=== PATIENT | male | born 1990 | race Caucasian/White ===

== ENCOUNTER 2020-05-13 11:36 | Emergency (ER) | payer BC, SELFPAY ==
--- NOTE | 2020-05-13 11:46 | ED.GENADULT ---
HPI - General Adult General Chief complaint: Upper Respiratory Infection Stated complaint: Sore throat Time Seen by Provider: 05/13/20 11:50 Source: patient Mode of arrival: ambulatory Limitations: no limitations History of Present Illness HPI narrative: 29-year-old male patient [facility] with complaints of sore throat for the past 2 days. Denies any fevers, ear pain, runny nose, coughing, chest pain or shortness of breath. Denies any abdominal pain, nausea, vomiting or diarrhea. Patient states he is tried [id number] Advil, ibuprofen for his pain. Patient states he has had strep throat before in the past. Related Data Home Medications Medication Instructions Recorded Confirmed Fish Oil 05/13/20 Wellbutrin SR 05/13/20 Allergies Allergy/AdvReac Type Severity Reaction Status Date / Time amoxicillin Allergy Rash Verified 05/13/20 12:05 Review of Systems Review of Systems: Narrative: CONSTITUTIONAL: Denies fever, chills, or sweats. EYES: Denies visual changes, redness, or discharge. ENT: Denies rhinorrhea, congestion, positive sore throat, denies otalgia. CARDIOVASCULAR: Denies chest pain, palpitations, or edema. RESPIRATORY: Denies cough or dyspnea. GASTROINTESTINAL: Denies abdominal pain, nausea, vomiting, or diarrhea. GENITOURINARY: Denies dysuria or hematuria. SKIN: Denies rash or itching. MUSCULOSKELETAL: Denies back pain, joint pain, or myalgia. NEUROLOGIC: Denies headache, numbness, or weakness. PSYCHIATRIC: Denies anxiety or depression. PMFSH Comments At the time of my signature I agree with nursing past medical history, surgical, social, and family history. There is no relevant family history pertinent to the presenting complaint. Exam Narrative: Exam Narrative: GENERAL: Well-appearing, well-nourished, and in no acute distress. HEAD: Normocephalic, atraumatic. EYES: PERRLA and EOMI. ENT: Nares clear, no rhinorrhea or epistaxis. Mucous membranes moist. Posterior pharynx with 2+ tonsil enlargement and erythema. No exudates or lesions present. Bilateral TMs unable to be assessed due to cerumen impaction. NECK: Supple. No lymphadenopathy CHEST: Clear to auscultation. No respiratory distress. HEART: Regular rate and rhythm. No murmur heard. Normal peripheral pulses. ABDOMEN: Soft, nontender, nondistended, normal active bowel sounds. EXTREMITIES: Normal range of motion. No edema. SKIN: Warm, dry, no rash. NEURO: No focal deficits. Alert and oriented x3. Course Vital Signs Vital signs: Vital Signs Temperature 36.8 C 05/13/20 11:50 Pulse Rate 75 05/13/20 11:50 Respiratory Rate 16 05/13/20 11:50 Blood Pressure 127/65 05/13/20 11:50 Pulse Oximetry 98 05/13/20 11:50 Temperature 36.8 C 05/13/20 11:50 Pulse Rate 75 05/13/20 11:50 Respiratory Rate 16 05/13/20 11:50 Blood Pressure 127/65 05/13/20 11:50 Pulse Oximetry 98 05/13/20 11:50 Vital signs reviewed. Medical Decision Making Differential Diagnosis Differential Diagnosis: Differential diagnosis: Viral pharyngitis, pharyngitis, group A strep, infectious mononucleosis, gonococcal pharyngitis, exudative pharyngitis, oral candidiasis. Chronic allergies, postnasal drip, GERD, abscess formation, but glottitis, retropharyngeal abscess formation, or airway obstruction. Cussed with patient that his bedside strep test today is positive. Discussed with him we will discharge him home with an antibiotic for the strep infection, I will take him off work for the rest of the day today as well as tomorrow. Patient verbalized understanding denies any other questions or concerns at this time. Vital Signs Vital Signs: Vital Signs Temperature 36.8 C 05/13/20 11:50 Pulse Rate 75 05/13/20 11:50 Respiratory Rate 16 05/13/20 11:50 Blood Pressure 127/65 05/13/20 11:50 Pulse Oximetry 98 05/13/20 11:50 Temperature 36.8 C 05/13/20 11:50 Pulse Rate 75 05/13/20 11:50 Respiratory Rate 16
[2020-05-13 11:50] VITALS: BP 127/65; PULSE 75; RESP 16; TEMP 36.8; O2SAT 98
== END 2020-05-13 12:07 | disposition home or self-care (01) ==
PROVIDERS: Emergency Provider Nurse Practitioner Family
DX: J02.0 Streptococcal pharyngitis (principal); K21.9 Gastro-esophageal reflux disease without esophagitis
CPT/HCPCS: 87880; 99203; G0463